=== PATIENT | female | born 1990 | race African-American/Black ===

== ENCOUNTER 2020-06-08 18:19 | Emergency (ER) | payer MEDICAID ==
[~2020-06-08] VITALS: Ht 172.7 cm; Wt 91.0 kg
[2020-06-08 18:32] VITALS: BP 123/75
[2020-06-09 00:10] LABS: BASOPHILS % 0.7 % (0.0-2.0); EOSINOPHILS % 0.2 % (0.0-5.0); HEMOGLOBIN. 12.4 g/dL (12.0-16.0); LYMPHOCYTES % 25.5 % (20.0-50.0); MEAN CORPUSCULAR HEMOGLOBIN 31.7 pg (28.0-32.0); MEAN PLATELET VOLUME 10.1 fl (7.4-10.4); NEUTROPHILS % 66.6 % (40.0-76.0); PLATELET 261 x1000/uL (130-400); RED BLOOD CELL COUNT 3.91 mill/uL (4.2-5.4); RED CELL DISTRIBUTION WIDTH 14.1 % (11.6-14.6)
[2020-06-09 00:14] LABS: CHLORIDE 103 mEq/L (98-107)
[2020-06-09 00:34] LABS: B-HCG QUANTITATIVE 34782 mIU/mL (<3)
[2020-06-09 03:41] LABS: *AMPHETAMINES SCREEN URINE NEGATIVE (NEGATIVE); *BARBITURATES SCREEN URINE NEGATIVE (NEGATIVE); *BENZODIAZEPINES SCREEN URINE NEGATIVE (NEGATIVE); *COCAINE SCREEN URINE NEGATIVE (NEGATIVE)
[2020-06-09 03:42] LABS: CANNABINOID URINE SCREEN NEGATIVE (NEGATIVE); METHADONE URINE SCREEN NEGATIVE (NEGATIVE); OPIATES URINE SCREEN NEGATIVE (NEGATIVE); PHENCYCLIDINE URINE SCREEN NEGATIVE (NEGATIVE)
[2020-06-09 05:59] LABS: CLARITY URINE TURBID (CLEAR); COLOR URINE DARK YELLOW (YELLOW); PROTEIN URINE 1+ (NEGATIVE); SPECIFIC GRAVITY URINE 1.031 (1.005-1.030)
[2020-06-09 06:00] LABS: KETONES URINE 3+ (NEGATIVE); LEUKOCYTE ESTERASE URINE 1+ (NEGATIVE); NITRITE URINE NEGATIVE (NEGATIVE); OCCULT BLOOD URINE NEGATIVE (NEGATIVE)
== END 2020-06-09 03:36 | disposition home or self-care (01) ==
LOC: ER 18:19
DX: O26.892 Other specified pregnancy related conditions, second trimester (principal); R20.0 Anesthesia of skin; R10.30 Lower abdominal pain, unspecified; Z3A.21 21 weeks gestation of pregnancy
CPT/HCPCS: 36415; 76805; 80053; 80305; 81003; 84702; 85025; 99284

== ENCOUNTER 2020-09-10 18:14 | Inpatient (IN) | payer MEDICAID ==
[~2020-09-10] VITALS: Ht 172.7 cm; Wt 104.8 kg
[2020-09-10] MEDS ORDERED: METH10TA7 PO (18:31)
[2020-09-10] MEDS ORDERED: DOCO200C5 MT (18:31)
[2020-09-10] MEDS: LACTATED RINGERS 1,000 ML IV SCH ×3 (19:53→22:08)
[2020-09-10] MEDS ORDERED: TERBUTALINE SULFATE 1MG/ML VIAL SUBCUT PRN (21:15)
[2020-09-10 21:26] LABS: BASOPHILS % 0.8 % (0.0-2.0); EOSINOPHILS % 0.3 % (0.0-5.0); HEMATOCRIT. 29.4 % (36.0-48.0); HEMOGLOBIN. 9.4 g/dL (12.0-16.0); LYMPHOCYTES % 16.7 % (20.0-50.0); MEAN CORPUSCULAR HEMOGLOBIN 31.6 pg (28.0-32.0); MEAN CORPUSCULAR VOLUME 98.7 fL (81.0-99.0); MONOCYTES % 7.8 % (2.0-8.0); NEUTROPHILS % 74.4 % (40.0-76.0); RED BLOOD CELL COUNT 2.98 mill/uL (4.2-5.4); RED CELL DISTRIBUTION WIDTH 14.1 % (11.6-14.6)
[2020-09-10 21:36] LABS: CLARITY URINE CLEAR (CLEAR); COLOR URINE YELLOW (YELLOW); KETONES URINE TRACE (NEGATIVE); LEUKOCYTE ESTERASE URINE 1+ (NEGATIVE); NITRITE URINE NEGATIVE (NEGATIVE); OCCULT BLOOD URINE TRACE (NEGATIVE); PH URINE 6.5 (4.5-8.0); PROTEIN URINE 1+ (NEGATIVE); SPECIFIC GRAVITY URINE 1.027 (1.005-1.030)
[2020-09-10 21:43] LABS: INR 0.9; PARTIAL THROMBOPLASTIN TIME 26.5 sec (23.4-31.0); PROTHROMBIN TIME 10.2 sec (9.6-11.0)
[2020-09-10 21:46] LABS: *AMPHETAMINES SCREEN URINE NEGATIVE (NEGATIVE); *BARBITURATES SCREEN URINE NEGATIVE (NEGATIVE); *BENZODIAZEPINES SCREEN URINE NEGATIVE (NEGATIVE); *COCAINE SCREEN URINE NEGATIVE (NEGATIVE)
[2020-09-10 21:47] LABS: CANNABINOID URINE SCREEN NEGATIVE (NEGATIVE); METHADONE URINE SCREEN NEGATIVE (NEGATIVE); OPIATES URINE SCREEN NEGATIVE (NEGATIVE); PHENCYCLIDINE URINE SCREEN NEGATIVE (NEGATIVE)
[2020-09-10] MEDS ORDERED: AMPICILLIN 2GM in NS 100ML 100 ML IV NR (22:00)
[2020-09-10] MEDS: BETAMETHASONE ACET/BETAMET 30 MG/5 ML VIAL IM SCH (22:05)
[2020-09-10] MEDS: METHIMAZOLE 10MG TABLET PO SCH (22:06)
[2020-09-10 22:17] LABS: HEPATITIS B SURFACE ANTIGEN NEGATIVE
[2020-09-10] MEDS: AZITHROMYCIN 500 MG in DEXT 5% WATER 250 ML IV SCH (22:57)
[2020-09-10 23:20] LABS: PLATELET 253 x1000/uL (130-400)
[2020-09-10 23:21] LABS: MEAN PLATELET VOLUME 9.8 fl (7.4-10.4)
[2020-09-10] MEDS ORDERED: ONDANSETRON HCL 4MG/2ML INJ IV PRN (23:30)
[2020-09-11] MEDS: AMPICILLIN 2GM in NS 100ML 100 ML IV SCH ×4 (04:04→21:41)
[2020-09-11] MEDS ORDERED: METRONIDAZOLE 500MG TABLET PO SCH (06:30)
[2020-09-11] MEDS: LACTATED RINGERS 1,000 ML IV SCH ×2 (07:53→17:17)
[2020-09-11] MEDS: BETAMETHASONE ACET/BETAMET 30 MG/5 ML VIAL IM SCH (21:45)
[2020-09-11] MEDS: METHIMAZOLE 10MG TABLET PO SCH (21:55)
[2020-09-11] MEDS: AZITHROMYCIN 500 MG in DEXT 5% WATER 250 ML IV SCH (22:37)
[2020-09-12] MEDS: AMPICILLIN 2GM in NS 100ML 100 ML IV SCH ×4 (03:41→21:58)
[2020-09-12] MEDS: LACTATED RINGERS 1,000 ML IV SCH ×3 (03:52→21:15)
[2020-09-12] MEDS ORDERED: ROPIVACAINE HCL/PF EPIDURAL 200 ML EPI SCH (14:45)
[2020-09-12] MEDS ORDERED: LIDOCAINE HCL 1% 20ML VIAL (Pyxis) INJ INFIL SCH (19:15)
[2020-09-12] MEDS ORDERED: DEXT 5%/LR + PITOCIN 20UNITS/L 1,000 ML IV SCH (19:15)
[2020-09-12] MEDS ORDERED: CARBOPROST TROMETHAMINE 250 MCG/ML AMPUL IM PRN (19:15)
[2020-09-12] MEDS ORDERED: BUTORPHANOL TARTRATE 2 MG/ML VIAL IV PRN (19:15)
[2020-09-12] MEDS ORDERED: NALOXONE HCL 0.4 MG/ML 1ML VIAL IM PRN (19:15)
[2020-09-12] MEDS ORDERED: METHYLERGONOVINE MALEATE 0.2 MG/ML IM PRN (19:15)
[2020-09-12] MEDS: METHIMAZOLE 10MG TABLET PO SCH (21:58)
[2020-09-12] MEDS: AZITHROMYCIN 500 MG in DEXT 5% WATER 250 ML IV SCH (22:53)
[2020-09-13] MEDS ORDERED: METHYLERGONOVINE MALEATE 0.2 MG/ML IM PRN ×2 (03:45)
[2020-09-13] MEDS ORDERED: RHO(D) IMMUNE GLOBULIN 300 MCG/SYR IM PRN (03:45)
[2020-09-13] MEDS ORDERED: BISACODYL 10MG SUPP PR PRN (03:45)
[2020-09-13] MEDS ORDERED: HEMORRHOIDAL SUPP PR PRN (03:45)
[2020-09-13] MEDS ORDERED: GLYCERIN/WITCH HAZEL LEAF MEDICATED PAD TOP PRN (03:45)
[2020-09-13] MEDS ORDERED: DIPHENHYDRAMINE 25MG CAPSULE PO PRN (03:45)
[2020-09-13] MEDS ORDERED: LANOLIN OINT 7GM TUBE TOP PRN (03:45)
[2020-09-13] MEDS ORDERED: DEXT 5%/LR + PITOCIN 20UNITS/L 1,000 ML IV SCH (03:45)
[2020-09-13] MEDS ORDERED: BENZOCAINE/LANOLIN/ALOE VERA SPRAY TOP PRN (03:45)
[2020-09-13] MEDS ORDERED: OXYCODONE HCL/ACETAMINOPHEN 5/325MG TABLET PO PRN ×2 (03:45)
[2020-09-13 05:30] VITALS: BP 120/75
[2020-09-13 07:45] VITALS: BP 124/80
[2020-09-13] MEDS: IBUPROFEN 400MG TABLET PO PRN ×2 (07:58→13:21)
[2020-09-13] MEDS ORDERED: PRENATAL VIT/FE FUMARATE/FA TABLET PO SCH (09:00)
[2020-09-13] MEDS ORDERED: METHYLERGONOVINE MALEATE 0.2MG TABLET PO SCH (09:00)
[2020-09-13] MEDS ORDERED: LIDOCAINE HCL 2%/EPINEPHRINE 1:100,000 20 ML VIAL INFIL ONE (09:07)
[2020-09-13 14:15] VITALS: BP 124/82
[2020-09-13] MEDS ORDERED: DOCUSATE SODIUM 100MG CAPSULE PO SCH (21:00)
[2020-09-13] MEDS: METHIMAZOLE 10MG TABLET PO SCH (21:10)
[2020-09-13] MEDS: SIMETHICONE 80MG TABLET CHEW PO SCH (21:10)
[2020-09-13] MEDS: MAGNESIUM/ALUMINUM HYDROXIDE/SIMETHICONE 30ML UDC PO SCH (21:10)
[2020-09-14 04:00] VITALS: BP 124/83
[2020-09-14 07:07] LABS: BASOPHILS % 0.3 % (0.0-2.0); EOSINOPHILS % 0.2 % (0.0-5.0); HEMATOCRIT. 25.6 % (36.0-48.0); HEMOGLOBIN. 8.4 g/dL (12.0-16.0); LYMPHOCYTES % 19.7 % (20.0-50.0); MEAN CORPUSCULAR HEMOGLOBIN 32.6 pg (28.0-32.0); MEAN CORPUSCULAR VOLUME 99.2 fL (81.0-99.0); MEAN PLATELET VOLUME 8.9 fl (7.4-10.4); NEUTROPHILS % 68.8 % (40.0-76.0); PLATELET 224 x1000/uL (130-400); RED BLOOD CELL COUNT 2.58 mill/uL (4.2-5.4)
[2020-09-14] MEDS ORDERED: FERROUS SULFATE 325MG TABLET PO SCH (07:30)
[2020-09-14] MEDS ORDERED: IBUP-2029 MT (07:47)
[2020-09-14 08:00] VITALS: BP 126/69
[2020-09-14] MEDS: MAGNESIUM/ALUMINUM HYDROXIDE/SIMETHICONE 30ML UDC PO SCH (09:06)
[2020-09-14] MEDS: SIMETHICONE 80MG TABLET CHEW PO SCH (09:07)
[2020-09-14 15:43] VITALS: BP 138/81
== END 2020-09-14 17:07 | disposition home or self-care (01) | DRG 560 ==
LOC: 8 EST LDRP 18:14 → OBSVTOIN 18:14 → 8EST 09-13 05:12
PROVIDERS: ADMIT Obstetrics & Gynecology; ATTEND Obstetrics & Gynecology
PROC: 10D07Z6 Extraction of Products of Conception, Vacuum, Via Natural or Artificial Opening (ICD-10-PCS; principal; 2020-09-14)
PROC: 0HQ9XZZ Repair Perineum Skin, External Approach (ICD-10-PCS; 2020-09-14)
PROC: 3E0R3BZ Introduction of Anesthetic Agent into Spinal Canal, Percutaneous Approach (ICD-10-PCS; 2020-09-14)
PROC: 00HU33Z Insertion of Infusion Device into Spinal Canal, Percutaneous Approach (ICD-10-PCS; 2020-09-14)
PROC: 3E0234Z Introduction of Serum, Toxoid and Vaccine into Muscle, Percutaneous Approach (ICD-10-PCS; 2020-09-14)
DX: O42.913 Preterm premature rupture of membranes, unspecified as to length of time between rupture and onset of labor, third trimester (principal); O60.14X0 Preterm labor third trimester with preterm delivery third trimester, not applicable or unspecified; O99.284 Endocrine, nutritional and metabolic diseases complicating childbirth; E05.90 Thyrotoxicosis, unspecified without thyrotoxic crisis or storm; O76 Abnormality in fetal heart rate and rhythm complicating labor and delivery; O70.0 First degree perineal laceration during delivery; Z3A.35 35 weeks gestation of pregnancy; Z37.0 Single live birth; Z30.430 Encounter for insertion of intrauterine contraceptive device; Z79.899 Other long term (current) drug therapy; Z23 Encounter for immunization
CPT/HCPCS: 36415; 76805; 76818; 80305; 81003; 85025; 86592; 86703; 86762; 86850; 86886; 86900; 87340; 90384; 99281; G0378; J0290; J0456; J0595; J0702; J2405; J2590; J2795; J3105; J3490; J7060; J7120

== ENCOUNTER 2024-07-18 18:15 | Emergency (ER) | payer MEDICAID, OTHER ==
[~2024-07-18] VITALS: Ht 175.3 cm; Wt 104.3 kg
[2024-07-18 18:58] VITALS: TEMP 36.7; O2SAT 98
[2024-07-18 22:42] VITALS: BP 142/90; PULSE 86; RESP 18; O2SAT 98
[2024-07-18 23:38] LABS: CLARITY URINE CLOUDY (CLEAR); COLOR URINE DARK YELLOW (YELLOW); GLUCOSE URINE NEGATIVE (NEGATIVE); KETONES URINE TRACE (NEGATIVE); LEUKOCYTE ESTERASE URINE 1+ (NEGATIVE); NITRITE URINE NEGATIVE (NEGATIVE); OCCULT BLOOD URINE 2+ (NEGATIVE); PH URINE 5.5 (4.5-8.0); PROTEIN URINE TRACE (NEGATIVE); SPECIFIC GRAVITY URINE 1.032 (1.005-1.030); UROBILINOGEN URINE 0.2 E.U./dL (0.2-1.0)
[2024-07-18] MEDS ORDERED: FLUC150T46 MT (23:45)
[2024-07-18] MEDS ORDERED: CEPH500C2 MT (23:46)
[2024-07-19 00:13] LABS: SQUAMOUS EPITHELIAL CELL URINE 1+ /lpf (RARE/1+)
[2024-07-19 00:15] LABS: BACTERIA URINE TRACE
== END 2024-07-19 | disposition home or self-care (01) ==
LOC: ER 18:15
DX: N39.0 Urinary tract infection, site not specified (principal); B37.31 Acute candidiasis of vulva and vagina
CPT/HCPCS: 81003; 87210; 99283